=== PATIENT | male | born 1980 | race Caucasian/White ===

== ENCOUNTER 2025-03-03 19:39 | Emergency (ER) | payer SELFPAY ==
[~2025-03-03] VITALS: Ht 160 cm; Wt 77.0 kg
[2025-03-03 19:45] VITALS: O2SAT 98
[2025-03-03 19:57] VITALS: BP 179/102; PULSE 98; RESP 18; TEMP 37.2; O2SAT 98
== END 2025-03-03 22:01 | disposition left against medical advice (07) ==
LOC: ER 19:39
DX: H92.02 Otalgia, left ear (principal); R05.9 Cough, unspecified; R09.81 Nasal congestion
CPT/HCPCS: 99281